=== PATIENT | male | born 1995 | race Caucasian/White ===

== ENCOUNTER 2016-07-25 11:08 | Emergency (ER) | payer SELFPAY ==
[~2016-07-25] VITALS: Ht 175.3 cm; Wt 82.6 kg
[2016-07-25 11:17] VITALS: BP 163/92
== END 2016-07-25 11:57 | disposition home or self-care (01) ==
LOC: ER 11:10
DX: R05 Cough (principal); F32.9 Major depressive disorder, single episode, unspecified; F41.9 Anxiety disorder, unspecified; Z88.8 Allergy status to other drugs, medicaments and biological substances; F17.210 Nicotine dependence, cigarettes, uncomplicated
CPT/HCPCS: 99283; A4606; Z7610